=== PATIENT | male | born 1950 | race Caucasian/White ===

== ENCOUNTER 2024-04-12 12:24 | Outpatient (CLI) | payer OTHER | END 2024-04-12 12:25 | disposition home or self-care (01) | LOC: BICCT 12:24 | DX: Z12.2 Encounter for screening for malignant neoplasm of respiratory organs (principal); Z87.891 Personal history of nicotine dependence; I25.10 Atherosclerotic heart disease of native coronary artery without angina pectoris; J90 Pleural effusion, not elsewhere classified | CPT/HCPCS: 71271 ==